=== PATIENT | male | born 1955 | race Caucasian/White ===

== ENCOUNTER 2021-08-30 07:45 | Outpatient (CLI) | payer BC, SELFPAY ==
--- NOTE | 2021-08-30 13:02 | WPDSIXMINUTE ---
Six Minute Walk Procedure Procedure Performed Pulmonary Stress Test (6 min walk) Six Minute Walk This is a 6 minute walk test. The test was performed and interpreted in accordance with the 2014 ERS/ATS task force guidelines. Findings: The patient's resting room air oxygen saturation measured by pulse oximetry was 94% and heart rate was 83 bpm. Patient ambulated for 366 meters and oxygen saturation remained 95 to 97%. Heart rate at the end of the study was 118 bpm. The patient did not qualify for supplemental oxygen at rest or with ambulation. There are no prior studies for comparison.
--- NOTE | 2021-08-30 13:03 | WPDPFTINT ---
PFT Procedure Performed PFT Procedure Performed Spirometry with Pre/Post Bronchodilator Plethysmography (Lung Vol) Diffusing Cap (DLCO) Flow Vol Loop PFT Interpretation This is a pulmonary function test with pre and post-bronchodilator spirometry, plethysmography and diffusing capacity. The test was performed and results interpreted in accordance with the 2019 and 2005 ATS/ERS Task Force guidelines respectively using the Global Lung Function Initiative-2012 reference equations. Patient demonstrated good effort and cooperation. Reproducibility criteria were met. The quality of the pre bronchodilator spirometry maneuver was Grade B and post bronchodilator spirometry maneuver was Grade A. Findings: Spirometry: The contour the inspiratory and expiratory flow tracing are normal. The pre bronchodilator FVC is 3.38 L, 83% predicted. The pre bronchodilator FEV1 is 2.45 L, 78% predicted. The FEV1: FVC ratio 72%. The post bronchodilator FVC is 3.76 L, representing an 11% increase. The post bronchodilator FEV1 is 2.87 L, representing a 17% increase. The post bronchodilator FEV1: FVC ratio 76%. Plethysmography: The total lung capacity is 6.85 L, 107% predicted. The functional residual capacity is 4.00 L, 121% predicted. The residual volume is 3.19 L, 150% predicted. Diffusing capacity: The absolute diffusion capacity is 20.3, 77% predicted. The diffusing capacity corrected for alveolar volume is 3.94, 91% predicted. Impression: The spirometry is normal without evidence of an obstructive abnormality. There is significant improvement after inhaling a single dose of albuterol. The total lung capacity is normal with an increased residual volume. The increase in residual volume is consistent with air trapping. The diffusing capacity is normal. There are no prior studies for comparison
== END 2021-08-30 07:46 | disposition home or self-care (01) ==
PROVIDERS: PCP Internal Medicine; Visit Provider Nurse Practitioner
DX: R06.09 Other forms of dyspnea (principal)
CPT/HCPCS: 94060; 94618; 94726; 94729